=== PATIENT | male | born 1950 ===

== ENCOUNTER 2025-02-28 15:09 | Emergency (ER) | payer MEDICARE ==
[~2025-02-28] VITALS: Ht 185.4 cm; Wt 93.2 kg
[~2025-02-28 15:09] MED LIST: calcium chloride 100 MG/1 ML inj IV ONE
[2025-02-28 15:23] VITALS: TEMP 98.4
[2025-02-28] MEDS: epiNEPHrine 5 MG in NS 250ml IV.SOLN IV SCH (15:25)
--- NOTE | 2025-02-28 15:48 | RADIOLOGY REPORT ---
EXAM: DI CHEST,SINGLE VIEW HISTORY: CODE BLUE COMPARISON: None TECHNIQUE: Portable supine AP view of the chest was performed. FINDINGS: There are opacities throughout both lungs. No pneumothorax. The heart is not enlarged. There is tubin g overlying the left upper chest which may represent a left IJ swan-Js catheter with tip in the bra chiocephalic vein. IMPRESSION: Bilateral pulmonary opacities may be due to pneumonia and/or CHF.
[2025-02-28 15:57] VITALS: BP 65/37; PULSE 104; RESP 16; O2SAT 51
--- NOTE | 2025-02-28 16:30 | Physician Documentation ---
History of Present Illness ~ Chief Complaint: Code Blue Stated Complaint: CODE Time Seen by MD: 15:50 HPI 74 year old male brought in code 3 by EMS. [place] and had been complaining of a severe headache and dizziness when he suddenly collapsed, became altered, and demonstrated abonormal respirations and possible seizure activity. He has a recent history of brain aneurysm which was clipped but negative follow up brain imaging recently. On arrival EMS reports that he was unresponsive with fixed dilatered pupils bilaterally. Shortly after loading him into the ambulance he became pulseless and CPR was started immediately. Initially he had PEA then was noted asystolic. Multiple failed attempts at intubation complicated by blood issuing from mouth. A left IO was placed. On arrival about 15-20 minutes of CPR had been in progress with perhaps a 30 minute transport time. The patient was being bagged and bloody fluid was issuing from his mouth. Medication Reconciliation Allergies: Coded Allergies: No Known Allergies (Unverified , 02/28/25) Review of Systems All Other Systems at this time: Reviewed and Negative Physical Exam Vital Signs: RN Vital Signs have been reviewed: Yes, Temperature: 98.4, Source: Temporal, Heart Rate: 104, Respiratory Rate: 16, BP: 65/37, Pulse Oximetry: 51, Weight: 93.180 Oxygen Flow Rate: 15.0 Physical Exam HEENT: pupils fixed, dilated Pulmonary: No spontaneous respirations, blood issuing from airway Cardiac: pulseless, central cyanosis MSK: no deformity Skin: pale, cool, mottled Neuro: unconscious, unresponsive. Procedures Intubation Intubation Time: 1512 Endotracheal Tube Size: 7.0 ETT Confirmation: Direct Visualization Progress Results/Orders Results/Orders Orders - BRIDGET CARROLL MD Normal Saline 250ml... W/Epinephrine Inj (02/28/25 15:40) Ventilator Settings (02/28/25 ) Abg (Arterial Blood Gas) (02/28/25 ) Cult Sputum + Gram Stain (02/28/25 16:00) Medications Received in ER Medications (Trade) Dose Ordered Sig/Yoselin Route PRN Reason Start Time Stop Time Status Last Admin Dose Admin Epinephrine HCl 5 mg/Sodium Chloride 250 ml @ 27.954 mls/ hr [id number] IV 02/28/25 15:40 02/28/25 15:25 27.954 MLS/HR Vital Signs 02/28/25 02/28/25 02/28/25 15:23 15:32 15:57 Temp 98.4 Pulse 0 113 104 Resp 0 12 16 B/P (MAP) 0/0 64/40 (48) Pulse Ox 0 57 51 O2 Flow Rate 15.0 FiO2 100 100 Medical Decision Making Findings 74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 CPR was continued and IV access obtained, and the patient was intubated immediately on arrival without difficulty. After several rounds of epinephrine and CPR we did establish return of spontaneous circulation with palpable pulses. He was noted to be hypoxic and hypotensive however and we delivered units of saline and an epinephrine drip and attempted to maximize his oxygenation. During this time there was no spontaneous movement or neurologic activity noted and his pupils remained fixed and dilated. We again lost pulses and continued CPR intermittently during the course of his ER stay. His CXR did demonstate diffuse infiltrates which were perhaps from edema or aspiration by my interpretation but which also demonstrated a well-placed ETT. 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 His continued poor oxygenation eventually resulted in a dysrhythmia, bradycardia, and asystole. His arrived in the ER shortly thereafter and I relayed the situation to her. 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 He will be dearly missed in our [facility] community. Differential Dx:Considerations: Include Cardiopulmonary arrest, Include Cardiogenic shock, Include Cardiac tamponade, Include Dysrhythmia, Include Electrolyte Disorder, Include Encephalopathy, Include Myocardial infaction, Include Pneumothorax, Include Pulmonary embolus, Include Respiratory failure, Include Ruptured aortic aneurysm Departure Disposition: 20 Impression: Primary Impression: Cardiac arrest Additional Impression Text condition: Referrals: NO PRIMARY CARE PROVIDER (PCP) Education Educated: Family Educated regarding: diagnosis, treatment, other Critical Care Note Critical Care Note This patient required 60 minutes of critical care time apart from separately billable procedures including frequent episodes of CPR, management of respiratory failure and hypoxia, bedside ultrasound for cardiac function, frequent reassessments, and fluid resuscitation. Additional Comment Additional Comment Procedure note: intubation 74 year old male in cardiac arrest, CPR in progress, with blood issuing from airway. Video laryngoscopy with a MAC-4 blade was used to pass a 7-0 tube between the vocal cords without difficulty, and using a small amount of suction to clear fluid and blood from the airway. The balloon was inflated and placement was confirmed with auscultation, colorimetric capnography, and equal chest rise. No sedation was used as this patient was unconscious and unresponsive on arrival. There were no complications. Signature Scribe Signature: . Attestation: . BRIDGET CARROLL MD Feb 28, 2025 16:30
--- NOTE | 2025-03-01 07:31 | ELECTROCARDIOGRAPH REPORT ---
[facility] Test Date: 2025-02-28 Test Time: 15:59:52 Pat Name: GAYLE CASTRO Department: EMERGENCY ROOM Patient ID: [id number] Room: Gender: M Shucker: : 1950 Requested By: BRIDGET CARROLL Order Number: [id number] Reading MD: Dr. Naresh Kasper Measurements Intervals [place] Rate: 96 P: 0 AR: 0 QRS: -38 QRSD: 90 T: 88 QT: 372 QTc: 471 Interpretive Statements Atrial fibrillation Left axis deviation RSR' in V1 or V2, right VCD or RVH Repol abnrm, severe global ischemia (LM/MVD) Electronically Signed On 03-10-2025 18:43:[address] Naresh Kasper Please click the below link to view image of tracing.
== END 2025-02-28 18:37 ==
LOC: ER 15:09
DX: I46.9 Cardiac arrest, cause unspecified (principal); R51.9 Headache, unspecified; R42 Dizziness and giddiness
CPT/HCPCS: 31500; 71045; 92950; 99291; J0171; J3490; J7030; J7050; 94002; 94760; 96365